=== PATIENT | male | born 1930 | race Caucasian/White ===

== ENCOUNTER → 2020-06-28 | Outpatient (CLI) | payer BC ==
[2020-06-28 15:32] LABS: Percent Saturation 23.5 % (20.0-50.0)
== END | disposition home or self-care (01) ==
LOC: LAB SHORT 09:50 → OLS 09:50
PROVIDERS: Internal Medicine Hematology & Oncology
DX: E61.1 Iron deficiency (principal)
CPT/HCPCS: 82728; 83540; 83550